=== PATIENT | male | born 1945 | race American Indian/Alaskan Native ===

== ENCOUNTER 2019-04-26 08:48 | Outpatient (CLI) | payer MEDICARE ==
[2019-04-26] MEDS: MIDAZOLAM 2 MG/2 ML INJ ONE ×2 (10:13→10:57)
[2019-04-26] MEDS: fentaNYL 100 MCG/2 ML INJ ONE ×2 (10:13→10:57)
--- NOTE | 2019-04-26 10:30 | Short Stay Summary ---
Short Stay Documentation Date of service: 04/26/19 - History Principal diagnosis: carotid stenosis Past Medical History: dialysis, ESRD, PVD, other (carotid stenosis) Past Surgical History: Other (multiple fistulas/grafts) Social history: no significant social history - Allergies and Medications Current Medications: Allergies iron dextran complex [From Infed] Allergy (Unverified 04/26/19 08:53) CAUSE PT TO HAVE A STROKE - Physical exam General appearance: no acute distress Integumentary: no rash, no growths HEENT: Atraumatic Lungs: Normal air movement Breasts: deferred Heart: Regular rate Gastrointestinal: normal Male Genitourinary: deferred Rectal Exam: deferred Extremities: abnormal Neurological: Normal speech, Normal tone - Brief post op/procedure progress note Date of procedure: 04/26/19 Pre-op diagnosis: carotid stenosis Post-op diagnosis: same Procedure: us and fluoro guided right common femoral vein PICC placement Anesthesia: local Surgeon: BRIANA UREÑA Estimated blood loss: minimal Pathology: none Condition: stable - Disposition Condition at discharge: Good Disposition: DC-01 TO HOME OR SELFCARE Short Stay Discharge Plan Activity: advance as tolerated Weight Bearing Status: Weight Bear as Tolerated Diet: regular Wound: keep clean and dry, per your surgeon's advice Follow up with: SHANTEL GARAY MD [Primary Care Provider] - 7 Days
[2019-04-26] MEDS ORDERED: HEPARIN/NS 5000 UNIT/500ML 500 ML IR ONE (10:39)
[2019-04-26] MEDS ORDERED: HEPARIN 10,000 UNITS/10 ML VIAL ONE (10:39)
[2019-04-26] MEDS: LIDOCAINE 1%/EPINEPHRINE 1:100,000 VIAL (20 ML) INFILTRATI ONE ×2 (10:56→11:11)
--- NOTE | 2019-04-26 11:28 | Operative Report ---
Operative Report Operative Report: Exam: Ultrasound and fluoroscopic guided PICC placement Clinical indication: Carotid stenosis Date: 04/26/2019 Procedure: Following an expiration of the risks, benefits and alternatives; written informed consent was obtained. The patient was brought to the angiographic suite and placed in supine position on the examination table. Initial ultrasound evaluation of his right groin demonstrated a patent right common femoral vein. The patient's right groin was prepped and draped in the usual sterile fashion. 1% lidocaine was used for anesthesia. Under ultrasound guidance, the right common femoral vein was cannulated with a 7 cm 21-gauge needle. A 0.01 a guidewire was advanced centrally. The needle was removed and a micro-sheath placed. Following the administration of a minimal amount of sedatives, the micro-sheath was exchanged over the guidewire for a 5.5 [place] peel-away sheath. A 0.01 a guidewire was then advanced centrally under fluoroscopy. The guidewire was advanced through the heart into the right subclavian vein stent for anchoring and to document intravenous positioning. The PICC was then cut to length and inserted to the peel-away sheath. With a guidewire, the catheter was advanced to the proximal IVC. The guidewire was removed. The peel-away sheath was removed. Both ports flushed and aspirated easily and return nonpulsatile blood. Catheter was securely fastened skin surface using a StatLock device and a sterile dressing applied. The patient tolerated the procedure well. There were no immediate post procedure complications. Conscious sedation was performed under the guidance of radiologic nursing. Continuous cardiopulmonary monitoring was utilized. [place]: Ultrasound and fluoroscopic guided PICC placement via the right common femoral vein.
[2019-04-26 12:16] VITALS: BP 137/48
--- NOTE | 2019-04-26 15:48 | Cat Scan Report ---
HEAD CT ANGIOGRAM 04/26/2019 HISTORY: Bilateral carotid artery stenosis. Omnipaque 350 100 mL FINDINGS: Contrast-enhanced CT angiographic images of the intracranial circulation were obtained. In addition to the axial images, sagittal and coronal reformatted images were obtained. In addition, 3 p je MIP reconstructions were produced. Atherosclerotic vascular calcifications are associated with the distal internal carotid arteries bila terally, and are associated with segmental narrowing of the distal ICAs, more pronounced on the right than on the left. There is evidence of intracranial atherosclerotic irregularity along the course of the middle cerebra l arteries and branches bilaterally, as well as along the course of the posterior cerebral arteries. The vertebrobasilar system is intact. The left distal vertebral artery is relatively hypoplastic on a developmental basis. There is no evidence of aneurysm IMPRESSION: Findings consistent with intracranial atherosclerotic disease. All CT scans at this location are performed using dose reduction to ALARA by means of automated expos ure control. Signer Name: Baljinder Franklin MD Signed: 04/26/2019 3:44 PM Workstation Name: [id number]
--- NOTE | 2019-04-26 15:53 | Cat Scan Report ---
NECK CT ANGIOGRAM 04/26/2019 HISTORY: Carotid stenosis FINDINGS: Contrast-enhanced CT angiographic images of the neck were obtained. In addition to the axia l images, sagittal and coronal reformatted images were obtained. In addition, 3 plane MIP reconstruct ions were produced. At the right bifurcation, there is atherosclerotic calcification, and evidence of soft plaque or thro mbus at the origin of the internal carotid artery, associated with. High-grade stenosis, in the range of 90% or greater. The vessel is not occluded. On the left, there is also some atherosclerotic calcification and thrombus or soft plaque, associated with approximately 50% narrowing of the proximal internal carotid artery. Common carotid arteries are unremarkable. There is no visualization of the left vertebral artery, which may be occluded or hypoplastic on a dev elopmental basis. The right vertebral artery is unremarkable. Visualized portions of the aortic arch are unremarkable. Patient is noted to have a stent in the right brachiocephalic vein. IMPRESSION: High-grade stenosis at the origin of the right internal carotid artery. See above discuss ion for details. NASCET like criteria were used in this evaluation. All CT scans at this location are performed using dose reduction to ALARA by means of automated expos ure control. Signer Name: Baljinder Franklin MD Signed: 04/26/2019 3:49 PM Workstation Name: [id number]
== END 2019-04-26 12:55 | disposition home or self-care (01) ==
LOC: CT 08:48
PROVIDERS: ATTEND Radiology Diagnostic Radiology
DX: I65.23 Occlusion and stenosis of bilateral carotid arteries (principal); N18.6 End stage renal disease; I73.9 Peripheral vascular disease, unspecified; Z99.2 Dependence on renal dialysis; Z79.899 Other long term (current) drug therapy; Z88.8 Allergy status to other drugs, medicaments and biological substances
CPT/HCPCS: 36573; 70496; 70498; 77001; 99156; 99157; C1751; J1644; J2250; J3010; Q9967; 36569

== ENCOUNTER 2019-05-15 07:25 | Inpatient (IN) | payer MEDICARE ==
[~2019-05-15 07:25] MED LIST: BUPIVACAINE/PF (0.5%) 5 MG/1 ML 10 ML VIAL INFILTRATI ONE; ceFAZolin/Water 2 GM/20 ML 2 GM/20 ML SYRINGE IV NR
[2019-05-15 09:01] LABS: Basophils % (Auto) 0.9 % (0.0-1.8); Eosinophils # (Auto) 0.3 K/mm3 (0.0-0.4); Eosinophils % (Auto) 7.1 % (0.0-4.3); Hematocrit 31.3 % (35.5-45.6); Hemoglobin 10.5 gm/dl (11.8-15.2); Lymphocytes # (Auto) 0.9 K/mm3 (1.2-5.4); Lymphocytes % (Auto) 23.2 % (13.4-35.0); Mean Corpuscular HGB Conc 34 % (32-34); Mean Corpuscular Volume 98 fl (84-94); Monocytes # (Auto) 0.4 K/mm3 (0.0-0.8); Monocytes % (Auto) 9.3 % (0.0-7.3); Platelet Count 106 K/mm3 (140-440); Red Blood Count 3.18 M/mm3 (3.65-5.03); Red Cell Distribution Width 15.2 % (13.2-15.2)
--- NOTE | 2019-05-15 09:18 | Anesthesia Consultation ---
Anesthesia Consult and Med Hx Date of service: 05/15/19 - Airway Anesthetic Teeth Evaluation: Partials ROM Head & Neck: Adequate Mental/Hyoid Distance: Adequate Mallampati Class: Class II Intubation Access Assessment: Good - Pulmonary Exam CTA: Yes - Cardiac Exam Cardiac Exam: RRR - Pre-Operative Health Status ASA Pre-Surgery Classification: ASA3 Proposed Anesthetic Plan: General (CHF EF 35-40%, Pacer, HTN cardiac clearance low risk , ESRD on HD , CVA for GA) - Pulmonary Hx Smoking: Yes (Former) - Cardiovascular System Hx Hypertension: Yes Hx Coronary Artery Disease: Yes Hx Valvular Heart Disease: Yes (Needs valve replacement) Hx Peripheral Vascular Disease: Yes - Central Nervous System CVA: Yes (Many years ago, no deficits now) Hx Psychiatric Problems: Yes - Endocrine Hx End Stage Renal Disease: Yes - Hematic Hx Anemia: Yes - Other Systems Hx Cancer: No
[2019-05-15] MEDS ORDERED: HYDROmorphone 1 MG/1 ML INJ IV PRN (09:19)
[2019-05-15] MEDS ORDERED: ONDANSETRON 4 MG/2 ML INJ IV PRN (09:19)
--- NOTE | 2019-05-15 09:19 | Anesthesia Day of Surgery ---
Anesthesia Day of Surgery - Day of Surgery Patient Examined: Yes Patient H&P Reviewed: Yes Patient is NPO: Yes
[2019-05-15 09:36] LABS: Calcium 9.2 mg/dL (8.4-10.2)
[2019-05-15] MEDS ORDERED: SODIUM CHLORIDE 0.9% 1000 ML 1,000 ML IV SCH (09:53)
[2019-05-15] MEDS ORDERED: MIDAZOLAM 2 MG/2 ML INJ IV NR (10:00)
[2019-05-15] MEDS ORDERED: fentaNYL 100 MCG/2 ML INJ ONE (10:06)
[2019-05-15] MEDS ORDERED: LIDOCAINE MPF (2%) 20 MG/1 ML VIAL 5 ML ONE (10:06)
[2019-05-15] MEDS ORDERED: PROPOFOL 200 MG/20 ML VIAL IV ONE (10:06)
[2019-05-15] MEDS ORDERED: PHENYLEPHRINE 10 MG/1 ML INJ SDV ONE ×3 (10:11→13:26)
[2019-05-15] MEDS ORDERED: PAPAVERINE 60 MG/2 ML INJ SDV ONE (10:11)
[2019-05-15] MEDS ORDERED: PROTAMINE SULFATE 50 MG/5 ML INJ ONE (10:11)
[2019-05-15] MEDS ORDERED: PHENYLEPHRINE/NS 1,000 MCG/10 ML SYRINGE (OR USE) IV ONE (10:11)
[2019-05-15] MEDS ORDERED: HEPARIN 10,000 UNITS/10 ML VIAL ONE (10:12)
[2019-05-15] MEDS ORDERED: THROMBIN (RECOMBINANT) 5,000 UNIT VIAL TP ONE ×2 (10:12→13:14)
[2019-05-15] MEDS ORDERED: rifAMPin 600 MG VIAL ONE (10:12)
[2019-05-15] MEDS ORDERED: SODIUM CHLORIDE 0.9% 500 ML 500 ML ONE (10:12)
[2019-05-15] MEDS ORDERED: LIDOCAINE-MPF (1%) 10 MG/1 ML VIAL 5 ML ONE (10:12)
[2019-05-15] MEDS ORDERED: GELATIN SPONGE SIZE 100 TP ONE ×2 (10:12→13:14)
[2019-05-15] MEDS ORDERED: BUPIVACAINE/PF (0.5%) 5 MG/1 ML 30 ML VIAL INFILTRATI ONE (10:12)
[2019-05-15] MEDS ORDERED: SODIUM CHLORIDE 0.9% 100 ML ONE (11:31)
[2019-05-15] MEDS ORDERED: ROCURONIUM 50 MG/5 ML INJ IV ONE (11:49)
[2019-05-15] MEDS ORDERED: SODIUM CHLORIDE 0.9% 500 ML IVPB IV ONE (12:05)
[2019-05-15] MEDS ORDERED: HEPARIN 10,000 UNITS/10 ML VIAL IV ONE (12:05)
[2019-05-15] MEDS ORDERED: rifAMPin 600 MG VIAL IV ONE (12:21)
[2019-05-15] MEDS ORDERED: BUPIVACAINE/PF (0.5%) 5 MG/1 ML 10 ML VIAL INFILTRATI ONE (13:25)
[2019-05-15] MEDS ORDERED: NEOSTIGMINE 10MG/10 ML INJ MDV ONE (13:30)
[2019-05-15] MEDS ORDERED: GLYCOPYRROLATE 0.4 MG/2 ML INJ ONE (13:30)
--- NOTE | 2019-05-15 13:33 | Vascular Lab Report ---
VL CAROTID DUPLEX RIGHT HISTORY: Right carotid stenosis, patient is status post endarterectomy TECHNIQUE: Grayscale ultrasound with color and spectral Doppler interrogation. FINDINGS: A limited targeted carotid ultrasound was performed to evaluate the right carotid system. The visualized CCA and ICA are widely patent with no evidence for disease or stenosis. Peak systolic velocity in the right ICA measures 66 cm/s. End-diastolic velocity measures 20 cm/s. IMPRESSION: Widely patent right carotid system. Patient is status post endarterectomy with peak systolic velocity 66 cm/s the right ICA. Signer Name: Paulino Boone Jr, MD Signed: 05/15/2019 1:29 PM Workstation Name: [id number]
[2019-05-15] MEDS ORDERED: NITROPRUSSIDE 50 MG in DEXTROSE 5% IN WATER 248 ML IV SCH (15:00)
[2019-05-15] MEDS ORDERED: DOPamine/D5W 800 MG/250 ML 800 MG/250 ML BAG IV SCH (15:00)
--- NOTE | 2019-05-15 15:04 | Post Anesthesia Evaluation ---
- Post Anesthesia Evaluation Patient Participated: Yes Airway Patent: Yes Stable Respiratory Function: Yes Nausea/Vomiting: No Temp > 96.8F: Yes Pain Manageable: Yes Adequeate Hydration: Yes Anesthesia Complications: No Block Receding Appropriately: Not Applicable
--- NOTE | 2019-05-15 15:09 | Operative Report ---
Operative Report Operative Report: Date of procedure: 05/15/2019 Pre-operative diagnosis: Right Carotid Artery Stenosis Post-operative diagnosis: Right Carotid Artery Stenosis Procedure(s): 1. Right Carotid Endarterectomy With Patch Angioplasty 2. Intraoperative Completion Duplex Surgeon: Christ Redd MD Paint Roller Covermaker: None Anesthesia: General Endotracheal Anesthesia EBL: 100 mL Findings: Significant internal right carotid artery stenosis. Specimen: Right Carotid Plaque Counts: Correct Complications: None Condition: Stable Indication: The patient is a 73-year-old male with a history of peripheral vascular disease with bilateral lower extremity rest pain who had a carotid duplex demonstrating approximately 90% stenosis of his right internal carotid. He is asymptomatic however he is in need of a right carotid endarterectomy prior to having intervention of his bilateral lower extremity peripheral vascular disease. He was worked up and found to be a suitable candidate for open carotid endarterectomy. He was given the risks, benefits, and alternative procedures and consented to procedure. Description of Procedure: The patient was brought to the operating room and laid in supine position. After general endotracheal anesthesia was achieved the patient was placed in beachchair position with her head elevated and turned slightly to the left. The patient's neck and chest were prepped and draped in normal fashion. An oblique incision was then created along the anterior border of the sternocleidomastoid. The incision was then carried down to the facial vein using sharp dissection. The facial vein was then dissected out circumferentially, suture ligated and divided. The dissection was then carried down to the common carotid using sharp dissection. The common carotid artery was dissected out circumferentially taking care to avoid the vagus nerve which was identified and avoided. The artery was then controlled with a large vessel loop. The dissection was carried up along the external carotid and the superficial thyroid artery was identified dissected out circumferentially and controlled with a 2-0 silk. The external carotid was dissected out and controlled a small vessel loop. I then dissected out the internal carotid artery well above the plaque which was identified by a change in hue of the artery from yellow to blue and palpation of the artery over a right angle. The hypoglossal nerve was identified and avoided. I controlled the internal carotid artery with a small vessel and at this point the patient was systemically heparinized with heparin IV. Once the heparin had circulated for 3 minute I clamped the internal carotid artery followed by the common carotid and then the external Carotid artery. I created an arteriotomy extending from the common carotid into the internal carotid, well above the plaque, using an 11 blade and Ortiz scissors. I then flashed the internal carotid artery to check for adequate backbleeding. The backbleeding from the internal carotid was sluggish therefore the patient will course shunting. I advanced a argyle shunt into the common carotid and then removed the clamp from the internal carotid and advanced the distal end of the shunt into the internal carotid. The shunt was secured in the internal carotid using a Gt clamp. u I then used a Imperial blade to dissect the plaque away from the artery. I used a right angle to continue the dissection of this plane from lateral to medial and then divided the plaque using Ortiz scissors. I then trimmed the plaque proximally using Ortiz and then teased the plaque away from the distal endpoint insuring that there were no areas of dissection or intimal flaps. These plaque forceps to remove all loose debris and then flushed the artery with heparinized saline. I then closed the artery using the Dacron patch and two 6-0 Prolenes in running fashion. Prior to completing the closure I removed the argyle shunt and flushed all arteries to remove all loose debris and then flushed the artery with heparinized saline. I then completed the closure adn flashed the internal carotid,and reclamped and then removed the clamp from the common carotid followed by the external carotid and allowed any loose debris to flush into the external carotid. I then removed the clamp from the internal carotid artery. Hemostasis was achieved with repair sutures with 6-0 Prolene in interrupted fashion and a combination of direct pressure with Quick Clot. Once hemostasis was achieved I performed an intraoperative duplex that demonstrated no evidence of dissection and normalization of internal carotid velocity. I then anesthetized the wound with 0.5% Marcaine and closed in 2 layers using a 3-0 Vicryl in running in the deep dermal layer and a 4-0 Monocryl in running in the subcuticular layer and dressed it with the Dermabond. The patient tolerated the procedure well all sponge needle and instrument counts were correct the patient was taken to the recovery area in stable condition.
[2019-05-15] MEDS: SODIUM CHLORIDE 0.9% 1000 ML 1,000 ML IV SCH (16:13)
[2019-05-15] MEDS: HYDROcodone/ACETAMINOPHEN 5-325 MG TAB PO PRN ×2 (17:48→23:54)
[2019-05-15] MEDS: ceFAZolin/NS 1 GM/50 ML 1 GM/50 ML BAG IV SCH (19:42)
[2019-05-15] MEDS ORDERED: NON-FORMULARY EACH (Ferric Citrate (Nf) 210 MG) PO SCH (20:00)
[2019-05-15] MEDS: DOCUSATE SODIUM 100 MG CAP PO SCH (22:04)
[2019-05-15] MEDS: TICAGRELOR 90 MG TAB PO SCH (22:04)
[2019-05-15] MEDS: MEGESTROL 40 MG TAB PO SCH (22:04)
[2019-05-15] MEDS: carvediloL 6.25 MG TAB PO SCH (22:29)
[2019-05-16] MEDS: SODIUM CHLORIDE 0.9% 1000 ML 1,000 ML IV SCH (02:23)
[2019-05-16] MEDS: ceFAZolin/NS 1 GM/50 ML 1 GM/50 ML BAG IV SCH (02:24)
[2019-05-16] MEDS: HYDROcodone/ACETAMINOPHEN 5-325 MG TAB PO PRN ×2 (06:00→21:51)
[2019-05-16] MEDS: carvediloL 6.25 MG TAB PO SCH ×2 (10:00→22:16)
[2019-05-16] MEDS: LISINOPRIL 5 MG TAB PO SCH (10:00)
[2019-05-16] MEDS ORDERED: NON-FORMULARY EACH (Lisinopril [Zestril Tab] 5 MG) PO SCH (10:00)
--- NOTE | 2019-05-16 10:48 | Progress Note ---
Assessment and Plan I discussed with patient the need to allow labs so that he can undergo dialysis. Additionally, the patient will need placement of a PICC line prior to his CTA of the abdomen and pelvis with runoff to his feet in the frailty of his veins a nd repeated contrast extravasation when CT scans are performed through superficial veins. The PICC team was consulted. The patient is doing well following his carotid endarterectomy. We'll keep the patient in the ICU 1 more night and sent to the floor tomorrow. Subjective Date of service: 05/16/19 Principal diagnosis: right carotid stenosis Interval history: Patient status post right carotid endarterectomy postop day 1. His incision is clean dry and intact with minimal tenderness to palpation. Patient is breathing easily. He does complain of difficulty swallowing large pills likely secondary to dehydration. The patient is moving all extremities symmetrically. He has been refusing laboratory tests as well as IV placement. Objective - Constitutional Vitals: Vital Signs - 12hr 05/15/19 05/15/19 05/16/19 23:00 23:30 00:00 Temperature 100.8 F H Pulse Rate 70 71 68 Pulse Rate [ From Monitor] Respiratory 30 H 29 H 27 H Rate Blood Pressure 106/49 107/48 107/48 O2 Sat by Pulse 100 100 100 Oximetry 05/16/19 05/16/19 05/16/19 00:30 01:00 01:30 Temperature Pulse Rate 70 68 73 Pulse Rate [ From Monitor] Respiratory 24 24 22 Rate Blood Pressure 93/43 89/38 84/37 O2 Sat by Pulse 100 100 Oximetry 05/16/19 05/16/19 05/16/19 02:00 02:30 03:00 Temperature Pulse Rate 73 71 72 Pulse Rate [ From Monitor] Respiratory 24 22 20 Rate Blood Pressure 84/37 89/38 96/42 O2 Sat by Pulse 91 Oximetry 05/16/19 05/16/19 05/16/19 03:30 04:00 04:30 Temperature 99.7 F H Pulse Rate 86 79 86 Pulse Rate [ 87 From Monitor] Respiratory 20 18 17 Rate Blood Pressure 96/46 100/44 96/46 O2 Sat by Pulse 98 100 Oximetry 05/16/19 05/16/19 05/16/19 05:00 05:30 06:00 Temperature Pulse Rate 85 72 87 Pulse Rate [ From Monitor] Respiratory 17 18 18 Rate Blood Pressure 95/47 99/44 113/51 O2 Sat by Pulse 100 100 Oximetry 05/16/19 05/16/19 05/16/19 06:30 07:00 07:30 Temperature Pulse Rate 79 78 77 Pulse Rate [ From Monitor] Respiratory 17 20 17 Rate Blood Pressure 98/48 99/50 104/52 O2 Sat by Pulse Oximetry 05/16/19 05/16/19 05/16/19 08:00 08:07 08:30 Temperature 96.5 F L Pulse Rate 85 86 Pulse Rate [ From Monitor] Respiratory 17 19 Rate Blood Pressure 101/43 108/55 O2 Sat by Pulse 100 100 Oximetry 05/16/19 05/16/19 05/16/19 09:00 09:30 10:00 Temperature Pulse Rate 83 91 H 84 Pulse Rate [ From Monitor] Respiratory 16 17 22 Rate Blood Pressure 106/55 105/55 112/58 O2 Sat by Pulse 100 100 100 Oximetry General appearance: Present: no acute distress - EENT Eyes: EOM intact ENT: hearing intact - Neck Neck: supple, normal ROM - Respiratory Respiratory effort: normal - Breasts Breasts: deferred Extremities: abnormal Extremity abnormal: pulses diminished - Gastrointestinal General gastrointestinal: Present: deferred Rectal Exam: deferred - Genitourinary Male genitourinary: deferred - Psychiatric Psychiatric: appropriate mood/affect, cooperative - Labs CBC & Chem 7: 05/15/19 08:50 05/15/19 08:50 Medications & Allergies - Medications Allergies/Adverse Reactions: Allergies iron dextran complex [From Infed] Allergy (Severe, Verified 05/15/19 10:53) CAUSE PT TO HAVE A STROKE Home Medications: Home Medications Medication Instructions Recorded Confirmed Last Taken Type Apixaban [Eliquis] 5 mg PO DAILY 05/14/19 05/14/19 05/13/19 10:00 History Aspirin [Aspirin BABY CHEW TAB] 81 mg PO DAILY 05/14/19 05/14/19 05/13/19 10:00 History Ferric Citrate (Nf) [Auryxia] 210 mg PO TID 05/14/19 05/14/19 05/14/19 10:00 History HYDROcodone/APAP 5-325 [[place] 1 tab PO Q6H PRN 05/14/19 05/14/19 Unknown History 5-325 mg TAB] Lisinopril [Zestril TAB] 5 mg PO QDAY 05/14/19 05/14/19 05/14/19 10:00 History Megestrol [Megace] 40 mg PO BID 05/14/19 05/14/19 05/14/19 10:00 History Ticagrelor [Brilinta] 90 mg PO BID 05/14/19 05/14/19 05/14/19 10:00 History carvediloL [Coreg] 6.25 mg PO BID 05/14/19 05/14/19 05/14/19 10:00 History Active Medications: Generic Name Dose Route Start Last Admin Trade Name Freq PRN Reason Stop Dose Admin Acetaminophen/Hydrocodone Bitart 1 each 05/15/19 14:02 05/16/19 06:00 [place] 5/325 PO 1 each Q6H PRN Administration Pain, Moderate (4-6) Apixaban 5 mg 05/16/19 10:00 Eliquis PO DAILY [facility] Protocol Aspirin 81 mg 05/16/19 10:00 Baby Aspirin PO DAILY [facility] Carvedilol 6.25 mg 05/15/19 22:00 05/15/19 22:29 Coreg PO Not Given BID [facility] Docusate Sodium 100 mg 05/15/19 22:00 05/15/19 22:04 Colace PO 100 mg BID [facility] Administration Dopamine HCl/Dextrose 800 mg in 250 mls @ 2.211 mls/hr 05/15/19 15:00 05/16/19 10:00 Intropin Drip 800 Mg/D5w 250 Ml IV 0 mcg/kg/min TITR [facility] 0 mls/hr Titration Protocol 2 MCG/KG/MIN Sodium Nitroprusside 50 mg/ 250 mls @ 4.423 mls/hr 05/15/19 15:00 Dextrose IV TITR [facility] Protocol 0.25 MCG/KG/MIN Sodium Chloride 1,000 mls @ 100 mls/hr 05/15/19 14:15 05/16/19 02:23 Nacl 0.9% 1000 Ml IV 100 mls/hr DIRECT [facility] Administration Lisinopril 5 mg 05/16/19 10:00 Zestril PO QDAY [facility] Megestrol Acetate 40 mg 05/15/19 22:00 05/15/19 22:04 Megestrol PO 40 mg BID [facility] Administration Miscellaneous Medication 210 mg 05/15/19 20:00 Ferric Citrate (Nf) PO TID [facility] Ticagrelor 90 mg 05/15/19 22:00 05/15/19 22:04 Brilinta PO 90 mg BID [facility] Administration
[2019-05-16] MEDS: TICAGRELOR 90 MG TAB PO SCH ×2 (10:50→21:52)
[2019-05-16] MEDS: MEGESTROL 40 MG TAB PO SCH ×2 (10:50→21:52)
[2019-05-16] MEDS: APIXABAN 5 MG TAB PO SCH (10:50)
[2019-05-16] MEDS: DOCUSATE SODIUM 100 MG CAP PO SCH ×2 (10:50→21:52)
[2019-05-16] MEDS: ASPIRIN 81 MG TAB CHEW PO SCH (10:51)
--- NOTE | 2019-05-16 11:48 | Consultation ---
History of Present Illness Consult date: 05/16/19 Requesting physician: ISSAC WHITTINGTON Reason for consult: other (Carotid Stenosis s/p CEA; Acute Hypoxemic Resp Failure; PVD; ESRD on Dialysis) History of present illness: PULMONARY/CCM CONSULT NOTE (Full dictation # [id number]) Please see dictated notes for full details Medications and Allergies Allergies Allergy/AdvReac Type Severity Reaction Status Date / Time iron dextran complex Allergy Severe CAUSE PT Verified 05/15/19 10:53 [From Infed] TO HAVE A STROKE Home Medications Medication Instructions Recorded Confirmed Last Taken Type Apixaban [Eliquis] 5 mg PO DAILY 05/14/19 05/14/19 05/13/19 10:00 History Aspirin [Aspirin BABY CHEW TAB] 81 mg PO DAILY 05/14/19 05/14/19 05/13/19 10:00 History Ferric Citrate (Nf) [Auryxia] 210 mg PO TID 05/14/19 05/14/19 05/14/19 10:00 History HYDROcodone/APAP 5-325 [[place] 1 tab PO Q6H PRN 05/14/19 05/14/19 Unknown History 5-325 mg TAB] Lisinopril [Zestril TAB] 5 mg PO QDAY 05/14/19 05/14/19 05/14/19 10:00 History Megestrol [Megace] 40 mg PO BID 05/14/19 05/14/19 05/14/19 10:00 History Ticagrelor [Brilinta] 90 mg PO BID 05/14/19 05/14/19 05/14/19 10:00 History carvediloL [Coreg] 6.25 mg PO BID 05/14/19 05/14/19 05/14/19 10:00 History Active Meds: Active Medications Acetaminophen/Hydrocodone Bitart ([place] 5/325) 1 each PO Q6H PRN PRN Reason: Pain, Moderate (4-6) Last Admin: 05/16/19 06:00 Dose: 1 each Documented by: Apixaban (Eliquis) 5 mg PO DAILY [facility]; Protocol Last Admin: 05/16/19 10:50 Dose: 5 mg Documented by: Aspirin (Baby Aspirin) 81 mg PO DAILY [facility] Last Admin: 05/16/19 10:51 Dose: 81 mg Documented by: Carvedilol (Coreg) 6.25 mg PO BID [facility] Last Admin: 05/16/19 10:00 Dose: Not Given Documented by: Docusate Sodium (Colace) 100 mg PO BID [facility] Last Admin: 05/16/19 10:50 Dose: 100 mg Documented by: Dopamine HCl/Dextrose (Intropin Drip 800 Mg/D5w 250 Ml) 800 mg in 250 mls @ 2.211 mls/hr IV TITR [facility]; Protocol Last Titration: 05/16/19 10:00 Dose: 0 mcg/kg/min, 0 mls/hr Documented by: Sodium Nitroprusside 50 mg/ (Dextrose) 250 mls @ 4.423 mls/hr IV TITR [facility]; Protocol Sodium Chloride (Nacl 0.9% 1000 Ml) 1,000 mls @ 100 mls/hr IV DIRECT [facility] Last Admin: 05/16/19 02:23 Dose: 100 mls/hr Documented by: Lisinopril (Zestril) 5 mg PO QDAY [facility] Last Admin: 05/16/19 10:00 Dose: Not Given Documented by: Megestrol Acetate (Megestrol) 40 mg PO BID [facility] Last Admin: 05/16/19 10:50 Dose: 40 mg Documented by: Miscellaneous Medication (Ferric Citrate (Nf)) 210 mg PO TID [facility] Ticagrelor (Brilinta) 90 mg PO BID [facility] Last Admin: 05/16/19 10:50 Dose: 90 mg Documented by: Physical Examination Vital signs: Vital Signs Temp Pulse Resp BP Pulse Ox 98.4 F 73 18 115/55 99 05/15/19 08:15 05/15/19 08:15 05/15/19 08:15 05/15/19 08:15 05/15/19 08:15 Results - Laboratory Findings CBC and BMP: 05/15/19 08:50 05/15/19 08:50 Abnormal lab findings: Abnormal Labs 05/15/19 05/15/19 08:50 08:50 WBC 4.1 L RBC 3.18 L Hgb 10.5 L Hct 31.3 L MCV 98 H MCH 33 H Plt Count 106 L [place] % (Auto) 9.3 H Eos % (Auto) 7.1 H Lymph # 0.9 L Carbon Dioxide 21 L BUN 46 H Creatinine 10.7 H Glucose 63 L
[2019-05-16] MEDS: MORPHINE 2 MG/1 ML INJ IV PRN ×2 (12:08→19:13)
[2019-05-16] MEDS ORDERED: ALBUTEROL 2.5 MG/3 ML NEBU IH PRN (12:39)
[2019-05-16] MEDS ORDERED: DEXTROSE 50% IN WATER (25GM) 50 ML SYRINGE IV ONE ×2 (12:54→13:08)
--- NOTE | 2019-05-16 13:08 | Consultation ---
History of Present Illness - Reason for Consult chronic renal failure, end stage renal disease - History of Present Illness 73-year-old male -Citizen Of [place], with a history of end-stage renal disease secondary to hypertension, who typically dialyzes and [place], who presented to the emergency room department secondary to endarterectomy secondary to right carotid artery stenosis , done by vascular surgery, who was sent to the ICU post-procedure secondary to hypotension requiring dopamine. Nephrology is being consult at this time secondary to chronic hemodialysis needs. He is to begin a TTS outpatient schedule. He did miss his last session on Monday. When seen the patient this time he has already been weaned off the dopamine infusion, and is hemodynamically otherwise stable, and he is only on 2 L of oxygen and seems to be respiratory ruby stable as well. He will be having CTA tomorrow for further evaluation. He has right upper extremity AV graft. Past History Past Medical History: diabetes, ESRD, hypertension, hyperlipidemia, PVD, stroke, other Past Surgical History: Other (AV graft creation, pacemaker ) Social history: no significant social history Family history: hypertension Medications and Allergies Allergies Allergy/AdvReac Type Severity Reaction Status Date / Time iron dextran complex Allergy Severe CAUSE PT Verified 05/15/19 10:53 [From Infed] TO HAVE A STROKE Home Medications Medication Instructions Recorded Confirmed Last Taken Type Apixaban [Eliquis] 5 mg PO DAILY 05/14/19 05/14/19 05/13/19 10:00 History Aspirin [Aspirin BABY CHEW TAB] 81 mg PO DAILY 05/14/19 05/14/19 05/13/19 10:00 History Ferric Citrate (Nf) [Auryxia] 210 mg PO TID 05/14/19 05/14/19 05/14/19 10:00 History HYDROcodone/APAP 5-325 [[place] 1 tab PO Q6H PRN 05/14/19 05/14/19 Unknown History 5-325 mg TAB] Lisinopril [Zestril TAB] 5 mg PO QDAY 05/14/19 05/14/19 05/14/19 10:00 History Megestrol [Megace] 40 mg PO BID 05/14/19 05/14/19 05/14/19 10:00 History Ticagrelor [Brilinta] 90 mg PO BID 05/14/19 05/14/19 05/14/19 10:00 History carvediloL [Coreg] 6.25 mg PO BID 05/14/19 05/14/19 05/14/19 10:00 History Active Meds: Active Medications Acetaminophen/Hydrocodone Bitart ([place] 5/325) 1 each PO Q6H PRN PRN Reason: Pain, Moderate (4-6) Last Admin: 05/16/19 06:00 Dose: 1 each Documented by: Albuterol (Proventil) 2.5 mg IH Q4HRT PRN PRN Reason: Shortness Of Breath Apixaban (Eliquis) 5 mg PO DAILY [facility]; Protocol Last Admin: 05/16/19 10:50 Dose: 5 mg Documented by: Aspirin (Baby Aspirin) 81 mg PO DAILY [facility] Last Admin: 05/16/19 10:51 Dose: 81 mg Documented by: Carvedilol (Coreg) 6.25 mg PO BID [facility] Last Admin: 05/16/19 10:00 Dose: Not Given Documented by: Docusate Sodium (Colace) 100 mg PO BID [facility] Last Admin: 05/16/19 10:50 Dose: 100 mg Documented by: Famotidine (Pepcid) 20 mg PO DAILY [facility] Dopamine HCl/Dextrose (Intropin Drip 800 Mg/D5w 250 Ml) 800 mg in 250 mls @ 2.211 mls/hr IV TITR [facility]; Protocol Last Titration: 05/16/19 10:00 Dose: 0 mcg/kg/min, 0 mls/hr Documented by: Sodium Nitroprusside 50 mg/ (Dextrose) 250 mls @ 4.423 mls/hr IV TITR [facility]; Protocol Sodium Chloride (Nacl 0.9% 1000 Ml) 1,000 mls @ 100 mls/hr IV DIRECT [facility] Last Admin: 05/16/19 02:23 Dose: 100 mls/hr Documented by: Lisinopril (Zestril) 5 mg PO QDAY [facility] Last Admin: 05/16/19 10:00 Dose: Not Given Documented by: Megestrol Acetate (Megestrol) 40 mg PO BID [facility] Last Admin: 05/16/19 10:50 Dose: 40 mg Documented by: Miscellaneous Medication (Ferric Citrate (Nf)) 210 mg PO TID [facility] Morphine Sulfate (Morphine) 2 mg IV Q4H PRN PRN Reason: Pain, Moderate (4-6) Last Admin: 05/16/19 12:08 Dose: 2 mg Documented by: Ticagrelor (Brilinta) 90 mg PO BID [facility] Last Admin: 05/16/19 10:50 Dose: 90 mg Documented by: Review of Systems Constitutional: fatigue, weakness Exam - Vital Signs Vital signs: Vital Signs Temp Pulse Resp BP Pulse Ox 98.4 F 73 18 115/55 99 05/15/19 08:15 05/15/19 08:15 05/15/19 08:15 05/15/19 08:15 05/15/19 08:15 - General Appearance General appearance: cachectic, chronically ill, frail EENT: ATNC, PERRL Neck: Present: neck supple Respiratory: Clear to Ascultation, Normal Exam Heart: regular, S1S2 Gastrointestinal: Present: normal, normoactive bowel sounds Integumentary: no rash, warm and dry Neurologic: no focal deficit Psychiatric: mood/affect appropriate, cooperative Results - Lab Results 05/15/19 08:50 05/15/19 08:50 Most recent lab results Calcium 9.2 mg/dL (8.4-10.2) 05/15/19 08:50 Assessment and Plan - Patient Problems (1) End stage renal disease Current Visit: Yes Status: Chronic Plan to address problem: We'll plan for hemodialysis tomorrow as he is also getting contrast exposure. Will also put him back on his TTS schedule by dialyzing him again on Monday. Have discussed this in detail with the dialysis staff and alert and orders at this time. (2) Carotid artery stenosis Current Visit: Yes Status: Acute Qualifiers: Laterality: right Qualified Code(s): I65.21 - Occlusion and stenosis of right carotid artery Plan to address problem: Status post right-sided endarterectomy. Further recommendations and management by vascular surgery. (3) Hypertensive chronic kidney disease with stage 5 chronic kidney disease or end stage renal disease Current Visit: Yes Status: Chronic Plan to address problem: Blood pressure is currently on the hypotensive side but improving since intensive care admission. He has now been weaned off of pressors. We'll continue to hold off on antihypertensive medication at this time until his hemodynamics improve further. We'll continue to monitor closely in the ICU. (4) Anemia in CKD (chronic kidney disease) Current Visit: Yes Status: Chronic Qualifiers: Chronic kidney disease stage: on chronic dialysis Qualified Code(s): N18.6 - End stage renal disease; D63.1 - Anemia in chronic kidney disease; Z99.2 - Dependence on renal dialysis Plan to address problem: LEAH therapy with hemodialysis.
[2019-05-16] MEDS ORDERED: ALBUMIN HUMAN 25% (25 GM/100 ML) INJ IV PRN (13:15)
[2019-05-16] MEDS ORDERED: SODIUM CHLORIDE 0.9% 100 ML IV PRN (13:15)
[2019-05-16] MEDS: FAMOTIDINE 20 MG TAB PO SCH (13:50)
[2019-05-16] MEDS ORDERED: D5W/0.45% NACL 1,000 ML IV SCH (14:00)
[2019-05-16 15:10] LABS: Calcium 8.7 mg/dL (8.4-10.2)
[2019-05-16 15:12] LABS: Basophils % (Auto) 0.5 % (0.0-1.8); Eosinophils # (Auto) 0.3 K/mm3 (0.0-0.4); Eosinophils % (Auto) 3.6 % (0.0-4.3); Hematocrit 27.1 % (35.5-45.6); Lymphocytes % (Auto) 13.7 % (13.4-35.0); Mean Corpuscular HGB Conc 33 % (32-34); Mean Corpuscular Volume 100 fl (84-94); Monocytes # (Auto) 0.6 K/mm3 (0.0-0.8); Red Blood Count 2.72 M/mm3 (3.65-5.03); Red Cell Distribution Width 15.8 % (13.2-15.2)
[2019-05-16] MEDS ORDERED: DEXTROSE 50% IN WATER (25GM) 50 ML SYRINGE IV PRN (15:12)
[2019-05-16 15:15] LABS: Platelet Count 89 K/mm3 (140-440)
[2019-05-16 15:22] LABS: Hepatitis B Surface Antigen Non-Reactive (Negative); Hepatitis C Virus Antibody Reactive (NonReactive)
[2019-05-16] MEDS: DEXTROSE 10% IN WATER 1,000 ML IV SCH (15:53)
--- NOTE | 2019-05-16 22:46 | Consultation ---
PULMONARY CRITICAL CARE CONSULT NOTE CONSULTING PHYSICIAN: Dr. Christ Redd. REASON FOR CONSULTATION: 1. Shock, status post right carotid endarterectomy. 2. End-stage renal disease, on dialysis. CHIEF COMPLAINT AND HISTORY OF PRESENT ILLNESS: The patient is a 73-year-old -[place]ag[place] male with past medical history significant amongst other things for a diagnosis of end-stage renal disease, on dialysis; peripheral vascular disease, who apparently was admitted for a right carotid endarterectomy. As far as I can tell, he also has a history of congestive heart failure, ejection fraction 35-40% with an implanted AICD. The procedure seems to have done well. When he did come out, however, he became hypotensive, on dopamine drip and then ICU admission was requested. When I stopped by to see the patient, he was resting in bed. He was complaining of pain in the right side of his neck, but mostly his lower extremities. He admits to some type of neuropathic pain. He states he is unable to swallow at that time and so was asking for some IV analgesics. He denied any nausea, vomiting, or overt aspiration. He described what was more like odynophagia. He denied any chest pains or palpitations. He describes himself as a former but still a 10+ pack-a-year tobacco smoker. Denies history of COPD. He denies being on any bronchodilators at home. He also denies any bleeding. This really is as much of the history of presentation as I have. PAST MEDICAL HISTORY: 1. Peripheral vascular disease. 2. End-stage renal disease, on dialysis. 3. Congestive heart failure, heart failure with reduced ejection fraction of 35-40%. 4. Questionable history of a cerebrovascular accident in the past. 5. Coronary artery disease. 6. Hypertension. 7. Valvular heart disease, reportedly needs a valve replacement. PAST SURGICAL HISTORY: Now status post right carotid endarterectomy. He also has a right upper extremity AV graft for dialysis and implanted cardiac device in the left upper anterior chest wall. MEDICATIONS: He was on at the time I stopped by to see him were reviewed. Pertinent medications included the following: He was on [place] 5/325 mg 1 tablet p.o. q. 6 hours p.r.n. moderate pain. He is also on Eliquis 5 mg p.o. daily, I believe to begin today. Baby aspirin 81 mg p.o. daily, carvedilol 6.25 mg p.o. b.i.d., docusate sodium 100 mg p.o. b.i.d. Dopamine drip was going at 6 mcg per kilogram per minute, Pepcid 20 mg p.o. daily, Zestril 5 mg p.o. daily, Megace 40 mg p.o. b.i.d., a non-formulary medication 210 mg p.o. t.i.d., and Brilinta 90 mg p.o. b.i.d. ALLERGIES: IRON DEXTRAN, complex nature of this allergy is unknown. DIET: Thin gentleman. Denies acute weight loss or gain in the preceding few weeks to months. FAMILY AND SOCIAL HISTORY: Apparently lives in the community. Denies current alcohol, tobacco, or illicit drug use or abuse. He does have a 10+ pack-a-year tobacco smoking history. Family history otherwise significant for hypertension, I believe. REVIEW OF SYSTEMS: No loss of consciousness. No new onset of seizures. No new onset of focal weakness. He denies gross hematochezia or melena. Denies gross hematuria or dysuria. No hematemesis. No hemoptysis. No active chest pain. He has the lower extremity neuropathic pain. He denies periods of unexplained sadness and/or elation as may be consistent with psychiatric type disorders. Complete 13-system review of systems was obtained. Pertinent positives and/or negatives as in body of history above, otherwise noncontributory. I should mention he denies polydipsia, polyuria. He denies heat or cold intolerance. PHYSICAL EXAMINATION: VITAL SIGNS: At presentation, he was afebrile, temperature 98.4 degrees Fahrenheit with a pulse of 73, respiratory rate of 18, blood pressure 115/55, O2 sats were 99%, inspired oxygen concentration at that time was not recorded. Blood pressure dropped as low as MAPs of 54. When I stopped by to see him, O2 sats were 100%; however, that was on 3 liters nasal cannula. GENERAL: He is elderly looking thin -[place]ag[place] male. Normocephalic, atraumatic, lying in bed with mildly increased respiratory effort, mostly from pain at rest. HEAD, EYES, EARS, NOSE AND THROAT: He was anicteric, no conjunctival erythema. Oropharynx was dry. Mallampati #2 oropharynx. No gross jugular venous distention. He has a right carotid endarterectomy. Postop incision without any significant bleeding or redness around it. No thyromegaly. NECK: Grossly, there were no palpable lymph nodes in the supraclavicular or submandibular lymph node chains. LUNGS: Auscultation of both lung stephen unremarkable. Lungs were clear bilaterally with good bilateral air movement. Slightly prolonged expiratory phase. HEART: Heart sounds 1 and 2 are heard. They were regular in rate and rhythm at the time of my evaluation without overt rubs or murmurs. He had an implanted device in the left upper anterior chest wall, nontender and no redness around the device insertion area. ABDOMEN: Flat, soft, bowel sounds are positive, nontender, no palpable hepatosplenomegaly. EXTREMITIES: Without overt digital clubbing, no cyanosis, no pedal edema. Pedal pulses were reduced about 1+ bilaterally. NEUROLOGIC: From the neurologic standpoint, pupils are equal, round, about 4 mm, reactive to light. Extraocular muscle movements were intact. He moves all 4 extremities spontaneously. He was tender to very light touch of the lower extremities, but possibly to do with his neuropathy. SKIN: The skin was of poor turgor, particularly in the lower extremities without overt cellulitis or rash. The skin of the shins was hairless. PSYCHIATRIC: His mood was somewhat anxious as was his affect. LABORATORY DATA: From my review are as follows: Admission white cell count 4100, hemoglobin was 10.5, hematocrit of 31.3, platelet count 106. Serum sodium was 137, potassium was 4.1, chloride 98, bicarbonate 21, BUN 46, creatinine 10.7, glucose was 63. I do not have any microbiology studies for review. A carotid Doppler study was done yesterday. It showed widely patent right carotid system status post carotid endarterectomy. ASSESSMENT: 1. Acute hypoxemic respiratory failure, now on supplemental oxygen. 2. Carotid stenosis, status post right carotid endarterectomy. 3. Peripheral vascular disease. 4. Congestive heart failure, heart failure with reduced ejection fraction of 35-40%. 5. Coronary artery disease. 6. End-stage renal disease, on dialysis Monday, and Monday. 7. Possible history of his prior cerebrovascular accident. 8. Anemia that is microcytic. 9. Hypertension. PLAN: We will continue current management strategies. The dopamine is about to be weaned off. We will titrate it to keep mean arterial pressures greater than or equal to about 65 mmHg. If he does not wean off the dopamine shortly, he will need a central venous access, as this has been running through a peripheral line. No infiltration is noted around the line. Oxygen will be weaned to keep sats greater than or equal to over 90%. A chest x-ray will be ordered to ensure there is no primary pulmonary pathology. He will benefit from evaluation for chronic obstructive lung disease based on the clinical examination and his history. We will continue current anticoagulant therapy with Eliquis and antiplatelet therapy as ordered with aspirin. H and H will be done p.r.n. to ensure there is no bleeding. His chronic congestive heart failure medications have been reintroduced. He will be placed on GI prophylaxis, especially with this patient on full anticoagulation. I will also begin some p.r.n. IV morphine 2 mg IV q. 4 hours p.r.n. severe pain as he is unable to swallow his pills at this point. Swallow evaluation will be deferred to the attending physician as necessary. Dialysis is due today and I will defer to the attending physician for Nephrology consult. Chronic home disease medications will be reinstituted. Cardiology evaluation will be at the behest of the attending physician. His blood pressure is stable at this point. Flu and pneumonia vaccination will be addressed per protocol. Thank you very much for the consult Dr. Redd. We will follow along and make further recommendations as picture progresses/becomes clearer. I should mention continued tobacco abstinence has been counseled. He is critically ill on life-sustaining interventions including vasopressors, at high risk of deterioration including the risk of . At this time, I spent about 35-40 minutes of critical care time without overlap and excluding any procedural time that may be necessary. JOB# [id number] LESLIE/VICENTE ESCOBAR
[2019-05-17] MEDS: DEXTROSE 10% IN WATER 1,000 ML IV SCH (02:51)
[2019-05-17] MEDS: MORPHINE 2 MG/1 ML INJ IV PRN ×3 (02:51→20:32)
--- NOTE | 2019-05-17 08:19 | Progress Note ---
Assessment and Plan Acute hypoxemic respiratory failure Carotid Artery stenosis (S/P Right CEA) Peripheral vascular disease. Congestive heart failure (HFrEF of 35-40%) Coronary artery disease. End-stage renal disease (on dialysis T/T/S) H/O cerebrovascular accident. Anemia (microcytic) Hypertension. - continue supplemental oxygen as needed to keep O2 sat's > 90% - continue bronchodilators with pulmonary hygiene per RT - HD/UF for toxin and volume clearance - PT/OT as tolerated - mobility protocols for pressure ulcer prophylaxis - GI & VTE prophylaxis - Flu & pneumovax addressed per protocol - continue other care per attending / other consultants ... re-evaluate in am & prn Subjective Date of service: 05/17/19 Principal diagnosis: Ac. hypoxemic resp failure; Carotid Artery stenosis; PVD; CHF; CAD; ESRD Interval history: Patient is seen today for: Ac. hypoxemic resp failure; Carotid Artery stenosis (S/P Right CEA); PVD; CHF (HFrEF of 35-40%); CAD; ESRD (on dialysis T/T/S); H/O CVA; Anemia (microcytic); HTN Seen and examined at bedside; 24hour events reviewed; nursing and respiratory care staff consulted; no adverse overnight events reported to me; resting peacefully in bed; feels better; tentatively for dialysis; denies acute chest pains or palpitations Objective Vital Signs - 12hr 05/16/19 05/16/19 05/16/19 21:00 21:51 22:00 Temperature Pulse Rate 71 92 H Pulse Rate [ From Monitor] Respiratory 23 24 29 H Rate Respiratory 31 H Rate [Neck] Blood Pressure 100/56 100/56 O2 Sat by Pulse Oximetry 05/16/19 05/16/19 05/16/19 22:10 22:16 23:00 Temperature Pulse Rate 88 88 76 Pulse Rate [ From Monitor] Respiratory 28 H 24 Rate Respiratory Rate [Neck] Blood Pressure 109/55 100/56 108/58 O2 Sat by Pulse 100 Oximetry 05/17/19 05/17/19 05/17/19 00:00 00:03 01:00 Temperature 98.4 F Pulse Rate 72 70 Pulse Rate [ From Monitor] Respiratory 25 H 22 Rate Respiratory Rate [Neck] Blood Pressure 104/49 105/51 O2 Sat by Pulse 100 100 Oximetry 05/17/19 05/17/19 05/17/19 02:00 02:51 03:00 Temperature Pulse Rate 72 72 Pulse Rate [ From Monitor] Respiratory 21 20 21 Rate Respiratory Rate [Neck] Blood Pressure 105/58 109/53 O2 Sat by Pulse 100 Oximetry 05/17/19 05/17/19 05/17/19 04:00 04:51 05:00 Temperature 98.0 F Pulse Rate 76 71 Pulse Rate [ 78 From Monitor] Respiratory 25 H 22 Rate Respiratory Rate [Neck] Blood Pressure 115/60 107/51 O2 Sat by Pulse 36 L Oximetry 05/17/19 05/17/19 06:00 07:00 Temperature Pulse Rate 71 73 Pulse Rate [ From Monitor] Respiratory 13 22 Rate Respiratory Rate [Neck] Blood Pressure 111/56 111/57 O2 Sat by Pulse Oximetry Constitutional: no acute distress, other (elderly looking thin male, normocephalic with normal respiratory effort at rest) Eyes: non-icteric ENT: oropharynx moist Neck: supple, no lymphadenopathy, other (S/P Right CEA with post op scar) Effort: mildly labored Ascultation: Bilateral: clear, diminished breath sounds Percussion: Bilateral: not dull Cardiovascular: regular rate and rhythm Gastrointestinal: normoactive bowel sounds, soft, non-tender, non-distended Integumentary: normal Extremities: no cyanosis, pulses normal, no ischemia or petechiae Neurologic: normal mental status, non-focal exam (grossly), pupils equal and round, CN II-XII normal Psychiatric: mood appropriate, affect normal CBC and BMP: 05/16/19 14:42 05/16/19 14:42 Abnormal lab findings: Abnormal Labs 05/15/19 05/15/19 05/16/19 08:50 08:50 12:58 WBC 4.1 L RBC 3.18 L Hgb 10.5 L Hct 31.3 L MCV 98 H MCH 33 H RDW Plt Count 106 L [place] % (Auto) 9.3 H Eos % (Auto) 7.1 H Lymph # 0.9 L Seg Neutrophils % Carbon Dioxide 21 L BUN 46 H Creatinine 10.7 H Glucose 63 L POC Glucose < 40 L Hepatitis C Antibody 05/16/19 05/16/19 05/16/19 14:42 14:42 14:42 WBC RBC 2.72 L Hgb 9.0 L Hct 27.1 L MCV 100 H MCH 33 H RDW 15.8 H Plt Count 89 L [place] % (Auto) 8.0 H Eos % (Auto) Lymph # 1.0 L Seg Neutrophils % 74.2 H Carbon Dioxide 17 L BUN 51 H Creatinine 12.0 H Glucose POC Glucose Hepatitis C Antibody Reactive A 05/16/19 14:59 WBC RBC Hgb Hct MCV MCH RDW Plt Count [place] % (Auto) Eos % (Auto) Lymph # Seg Neutrophils % Carbon Dioxide BUN Creatinine Glucose POC Glucose 57 L Hepatitis C Antibody Allied health notes reviewed: nursing
--- NOTE | 2019-05-17 08:28 | Progress Note ---
Assessment and Plan - Patient Problems (1) End stage renal disease Current Visit: Yes Status: Chronic Plan to address problem: We'll plan for hemodialysis today as he is also getting contrast exposure. Will also put him back on his TTS schedule by dialyzing him again on Monday. Have discussed this in detail with the dialysis staff and alert and orders at this time. (2) Carotid artery stenosis Current Visit: Yes Status: Acute Qualifiers: Laterality: right Qualified Code(s): I65.21 - Occlusion and stenosis of right carotid artery Plan to address problem: Status post right-sided endarterectomy. Further recommendations and management by vascular surgery. (3) Hypertensive chronic kidney disease with stage 5 chronic kidney disease or end stage renal disease Current Visit: Yes Status: Chronic Plan to address problem: Blood pressure is currently on the hypotensive side but improving since in [facility]. He has now been weaned off of pressors. We'll continue to hold off on antihypertensive medication at this time until his hemodynamics improve further. We'll continue to monitor closely in the ICU. (4) Anemia in CKD (chronic kidney disease) Current Visit: Yes Status: Chronic Qualifiers: Chronic kidney disease stage: on chronic dialysis Qualified Code(s): N18.6 - End stage renal disease; D63.1 - Anemia in chronic kidney disease; Z99.2 - Dependence on renal dialysis Plan to address problem: LEAH therapy with hemodialysis. Subjective Date of service: 05/17/19 Principal diagnosis: Ac. hypoxemic resp failure; Carotid Artery stenosis; PVD; CHF; CAD; ESRD Interval history: No acute issues overnight. Continues on D10 at 75 mL an hour. Plan for hemodialysis today. Objective - Vital Signs Vital signs: Vital Signs - 12hr 05/16/19 05/16/19 05/16/19 21:00 21:51 22:00 Temperature Pulse Rate 71 92 H Pulse Rate [ From Monitor] Respiratory 23 24 29 H Rate Respiratory 31 H Rate [Neck] Blood Pressure 100/56 100/56 O2 Sat by Pulse Oximetry 05/16/19 05/16/19 05/16/19 22:10 22:16 23:00 Temperature Pulse Rate 88 88 76 Pulse Rate [ From Monitor] Respiratory 28 H 24 Rate Respiratory Rate [Neck] Blood Pressure 109/55 100/56 108/58 O2 Sat by Pulse 100 Oximetry 05/17/19 05/17/19 05/17/19 00:00 00:03 01:00 Temperature 98.4 F Pulse Rate 72 70 Pulse Rate [ From Monitor] Respiratory 25 H 22 Rate Respiratory Rate [Neck] Blood Pressure 104/49 105/51 O2 Sat by Pulse 100 100 Oximetry 05/17/19 05/17/19 05/17/19 02:00 02:51 03:00 Temperature Pulse Rate 72 72 Pulse Rate [ From Monitor] Respiratory 21 20 21 Rate Respiratory Rate [Neck] Blood Pressure 105/58 109/53 O2 Sat by Pulse 100 Oximetry 05/17/19 05/17/19 05/17/19 04:00 04:51 05:00 Temperature 98.0 F Pulse Rate 76 71 Pulse Rate [ 78 From Monitor] Respiratory 25 H 22 Rate Respiratory Rate [Neck] Blood Pressure 115/60 107/51 O2 Sat by Pulse 36 L Oximetry 05/17/19 05/17/19 06:00 07:00 Temperature Pulse Rate 71 73 Pulse Rate [ From Monitor] Respiratory 13 22 Rate Respiratory Rate [Neck] Blood Pressure 111/56 111/57 O2 Sat by Pulse Oximetry - General Appearance General appearance: appears stated age, chronically ill, frail EENT: ATNC, PERRL Neck: no JVD, no thyromegaly Respiratory: Present: Clear to Ascultation Cardiology: regular, S1S2 Gastrointestinal: normal, normoactive bowel sounds Integumentary: warm and dry Neurologic: no focal deficit Musculoskeletal: deferred Psychiatric: cooperative - Lab 05/16/19 14:42 05/16/19 14:42 Most recent lab results Calcium 8.7 mg/dL (8.4-10.2) 05/16/19 14:42 - Allied health notes Allied health notes reviewed: nursing Medications & Allergies - Medications Allergies/Adverse Reactions: Allergies iron dextran complex [From Infed] Allergy (Severe, Verified 05/15/19 10:53) CAUSE PT TO HAVE A STROKE Home Medications: Home Medications Medication Instructions Recorded Confirmed Last Taken Type Apixaban [Eliquis] 5 mg PO DAILY 05/14/19 05/14/19 05/13/19 10:00 History Aspirin [Aspirin BABY CHEW TAB] 81 mg PO DAILY 05/14/19 05/14/19 05/13/19 10:00 History Ferric Citrate (Nf) [Auryxia] 210 mg PO TID 05/14/19 05/14/19 05/14/19 10:00 History HYDROcodone/APAP 5-325 [[place] 1 tab PO Q6H PRN 05/14/19 05/14/19 Unknown History 5-325 mg TAB] Lisinopril [Zestril TAB] 5 mg PO QDAY 05/14/19 05/14/19 05/14/19 10:00 History Megestrol [Megace] 40 mg PO BID 05/14/19 05/14/19 05/14/19 10:00 History Ticagrelor [Brilinta] 90 mg PO BID 05/14/19 05/14/19 05/14/19 10:00 History carvediloL [Coreg] 6.25 mg PO BID 05/14/19 05/14/19 05/14/19 10:00 History Active Medications: Generic Name Dose Route Start Last Admin Trade Name Freq PRN Reason Stop Dose Admin Acetaminophen/Hydrocodone Bitart 1 each 05/15/19 14:02 05/16/19 21:51 [place] 5/325 PO 1 each Q6H PRN Administration Pain, Moderate (4-6) Albumin Human 25 gm 05/16/19 13:15 Alburx 25% (Albumin) IV EBEN PRN Hypotension Albuterol 2.5 mg 05/16/19 12:39 Proventil IH Q4HRT PRN Shortness Of Breath Apixaban 5 mg 05/16/19 10:00 05/16/19 10:50 Eliquis PO 5 mg DAILY [facility] Administration Protocol Aspirin 81 mg 05/16/19 10:00 05/16/19 10:51 Baby Aspirin PO 81 mg DAILY [facility] Administration Carvedilol 6.25 mg 05/15/19 22:00 05/16/19 22:16 Coreg PO Not Given BID [facility] Dextrose 50 ml 05/16/19 15:12 05/16/19 15:29 D50w (25gm) Syringe IV 50 ml Q30MIN PRN Administration Hypoglycemia Protocol Docusate Sodium 100 mg 05/15/19 22:00 05/16/19 21:52 Colace PO 100 mg BID [facility] Administration Famotidine 20 mg 05/16/19 13:00 05/16/19 13:50 Pepcid PO 20 mg DAILY [facility] Administration Dopamine HCl/Dextrose 800 mg in 250 mls @ 2.211 mls/hr 05/15/19 15:00 05/23 10:00 Intropin Drip 800 Mg/D5w 250 Ml IV 0 mcg/kg/min TITR [facility] 0 mls/hr Titration Protocol 2 MCG/KG/MIN Sodium Nitroprusside 50 mg/ 250 mls @ 4.423 mls/hr 05/15/19 15:00 Dextrose IV TITR [facility] Protocol 0.25 MCG/KG/MIN Sodium Chloride 100 mls @ 999 mls/hr 05/16/19 13:15 Nacl 0.9% IV EBEN PRN Hypotension Dextrose 1,000 mls @ 75 mls/hr 05/16/19 16:00 05/17/19 02:51 D10w IV 75 mls/hr DIRECT [facility] Administration Lisinopril 5 mg 05/16/19 10:00 05/16/19 10:00 Zestril PO Not Given QDAY [facility] Megestrol Acetate 40 mg 05/15/19 22:00 05/16/19 21:52 Megestrol PO 40 mg BID [facility] Administration Miscellaneous Medication 210 mg 05/15/19 20:00 Ferric Citrate (Nf) PO TID [facility] Morphine Sulfate 2 mg 05/16/19 11:49 05/17/19 02:51 Morphine IV 2 mg Q4H PRN Administration Pain, Moderate (4-6) Ticagrelor 90 mg 05/15/19 22:00 05/16/19 21:52 Brilinta PO 90 mg BID [facility] Administration
[2019-05-17] MEDS: ASPIRIN 81 MG TAB CHEW PO SCH (09:31)
[2019-05-17] MEDS: DOCUSATE SODIUM 100 MG CAP PO SCH (09:31)
[2019-05-17] MEDS: TICAGRELOR 90 MG TAB PO SCH (09:31)
[2019-05-17] MEDS: carvediloL 6.25 MG TAB PO SCH (09:31)
[2019-05-17] MEDS: APIXABAN 5 MG TAB PO SCH (09:33)
[2019-05-17] MEDS: FAMOTIDINE 20 MG TAB PO SCH (09:33)
[2019-05-17] MEDS: MEGESTROL 40 MG TAB PO SCH (09:33)
[2019-05-17] MEDS: LISINOPRIL 5 MG TAB PO SCH (09:33)
--- NOTE | 2019-05-17 10:02 | Progress Note ---
Subjective Date of service: 05/17/19 Principal diagnosis: Ac. hypoxemic resp failure; Carotid Artery stenosis; PVD; CHF; CAD; ESRD Interval history: s/p Right CEA patient doing well neuro remains intact awaiting CTA to be completed Objective - Constitutional Vitals: Vital Signs - 12hr 05/16/19 05/16/19 05/16/19 22:00 22:10 22:16 Temperature Pulse Rate 92 H 88 88 Pulse Rate [ From Monitor] Respiratory 29 H 28 H Rate Respiratory 31 H Rate [Neck] Blood Pressure 100/56 109/55 100/56 O2 Sat by Pulse Oximetry 05/16/19 05/17/19 05/17/19 23:00 00:00 00:03 Temperature 98.4 F Pulse Rate 76 72 Pulse Rate [ From Monitor] Respiratory 24 25 H Rate Respiratory Rate [Neck] Blood Pressure 108/58 104/49 O2 Sat by Pulse 100 100 Oximetry 05/17/19 05/17/19 05/17/19 01:00 02:00 02:51 Temperature Pulse Rate 70 72 Pulse Rate [ From Monitor] Respiratory 22 21 20 Rate Respiratory Rate [Neck] Blood Pressure 105/51 105/58 O2 Sat by Pulse 100 100 Oximetry 05/17/19 05/17/19 05/17/19 03:00 04:00 04:51 Temperature 98.0 F Pulse Rate 72 76 Pulse Rate [ 78 From Monitor] Respiratory 21 25 H Rate Respiratory Rate [Neck] Blood Pressure 109/53 115/60 O2 Sat by Pulse 36 L Oximetry 05/17/19 05/17/19 05/17/19 05:00 06:00 07:00 Temperature Pulse Rate 71 71 73 Pulse Rate [ From Monitor] Respiratory 22 13 22 Rate Respiratory Rate [Neck] Blood Pressure 107/51 111/56 111/57 O2 Sat by Pulse Oximetry 05/17/19 05/17/19 05/17/19 08:00 09:23 09:31 Temperature 98.7 F Pulse Rate 74 Pulse Rate [ From Monitor] Respiratory Rate Respiratory Rate [Neck] Blood Pressure 115/55 O2 Sat by Pulse 97 Oximetry 05/17/19 09:33 Temperature Pulse Rate 74 Pulse Rate [ From Monitor] Respiratory Rate Respiratory Rate [Neck] Blood Pressure 115/55 O2 Sat by Pulse Oximetry - Labs CBC & Chem 7: 05/16/19 14:42 05/16/19 14:42 Labs: Abnormal lab results 05/16/19 05/16/19 05/16/19 Range/Units 12:58 14:42 14:42 RBC 2.72 L (3.65-5.03) M/mm3 Hgb 9.0 L (11.8-15.2) gm/dl Hct 27.1 L (35.5-45.6) % MCV 100 H (84-94) fl MCH 33 H (28-32) pg RDW 15.8 H (13.2-15.2) % Plt Count 89 L (140-440) K/mm3 [place] % (Auto) 8.0 H (0.0-7.3) % Lymph # 1.0 L (1.2-5.4) K/mm3 Seg Neutrophils % 74.2 H (40.0-70.0) % Carbon Dioxide 17 L (22-30) mmol/L BUN 51 H (9-20) mg/dL Creatinine 12.0 H (0.8-1.5) mg/dL POC Glucose < 40 L (70-105) Hepatitis C Antibody (NonReactive) 05/16/19 05/16/19 Range/Units 14:42 14:59 RBC (3.65-5.03) M/mm3 Hgb (11.8-15.2) gm/dl Hct (35.5-45.6) % MCV (84-94) fl MCH (28-32) pg RDW (13.2-15.2) % Plt Count (140-440) K/mm3 [place] % (Auto) (0.0-7.3) % Lymph # (1.2-5.4) K/mm3 Seg Neutrophils % (40.0-70.0) % Carbon Dioxide (22-30) mmol/L BUN (9-20) mg/dL Creatinine (0.8-1.5) mg/dL POC Glucose 57 L (70-105) Hepatitis C Antibody Reactive A (NonReactive) Medications & Allergies - Medications Allergies/Adverse Reactions: Allergies iron dextran complex [From Infed] Allergy (Severe, Verified 05/15/19 10:53) CAUSE PT TO HAVE A STROKE Home Medications: Home Medications Medication Instructions Recorded Confirmed Last Taken Type Apixaban [Eliquis] 5 mg PO DAILY 05/14/19 05/14/19 05/13/19 10:00 History Aspirin [Aspirin BABY CHEW TAB] 81 mg PO DAILY 05/14/19 05/14/19 05/13/19 10:00 History Ferric Citrate (Nf) [Auryxia] 210 mg PO TID 05/14/19 05/14/19 05/14/19 10:00 History HYDROcodone/APAP 5-325 [[place] 1 tab PO Q6H PRN 05/14/19 05/14/19 Unknown History 5-325 mg TAB] Lisinopril [Zestril TAB] 5 mg PO QDAY 05/14/19 05/14/19 05/14/19 10:00 History Megestrol [Megace] 40 mg PO BID 05/14/19 05/14/19 05/14/19 10:00 History Ticagrelor [Brilinta] 90 mg PO BID 05/14/19 05/14/19 05/14/19 10:00 History carvediloL [Coreg] 6.25 mg PO BID 05/14/19 05/14/19 05/14/19 10:00 History Active Medications: Generic Name Dose Route Start Last Admin Trade Name Freq PRN Reason Stop Dose Admin Acetaminophen/Hydrocodone Bitart 1 each 05/15/19 14:02 05/16/19 21:51 [place] 5/325 PO 1 each Q6H PRN Administration Pain, Moderate (4-6) Albumin Human 25 gm 05/16/19 13:15 Alburx 25% (Albumin) IV EBEN PRN Hypotension Albuterol 2.5 mg 05/16/19 12:39 Proventil IH Q4HRT PRN Shortness Of Breath Apixaban 5 mg 05/16/19 10:00 05/17/19 09:33 Eliquis PO Not Given DAILY [facility] Protocol Aspirin 81 mg 05/16/19 10:00 05/17/19 09:31 Baby Aspirin PO Not Given DAILY [facility] Carvedilol 6.25 mg 05/15/19 22:00 05/17/19 09:31 Coreg PO Not Given BID [facility] Dextrose 50 ml 05/16/19 15:12 05/16/19 15:29 D50w (25gm) Syringe IV 50 ml Q30MIN PRN Administration Hypoglycemia Protocol Docusate Sodium 100 mg 05/15/19 22:00 05/17/19 09:31 Colace PO Not Given BID [facility] Famotidine 20 mg 05/16/19 13:00 05/17/19 09:33 Pepcid PO Not Given DAILY [facility] Dopamine HCl/Dextrose 800 mg in 250 mls @ 2.211 mls/hr 05/15/19 15:00 05/16/19 10:00 Intropin Drip 800 Mg/D5w 250 Ml IV 0 mcg/kg/min TITR [facility] 0 mls/hr Titration Protocol 2 MCG/KG/MIN Sodium Nitroprusside 50 mg/ 250 mls @ 4.423 mls/hr 05/15/19 15:00 Dextrose IV TITR [facility] Protocol 0.25 MCG/KG/MIN Sodium Chloride 100 mls @ 999 mls/hr 05/16/19 13:15 Nacl 0.9% IV EBEN PRN Hypotension Dextrose 1,000 mls @ 75 mls/hr 05/16/19 16:00 05/17/19 02:51 D10w IV 75 mls/hr DIRECT [facility] Administration Lisinopril 5 mg 05/16/19 10:00 05/17/19 09:33 Zestril PO Not Given QDAY [facility] Megestrol Acetate 40 mg 05/15/19 22:00 05/17/19 09:33 Megestrol PO Not Given BID [facility] Miscellaneous Medication 210 mg 05/15/19 20:00 Ferric Citrate (Nf) PO TID [facility] Morphine Sulfate 2 mg 05/16/19 11:49 05/17/19 09:30 Morphine IV 2 mg Q4H PRN Administration Pain, Moderate (4-6) Ticagrelor 90 mg 05/15/19 22:00 05/17/19 09:31 Brilinta PO Not Given BID [facility]
[2019-05-17] MEDS ORDERED: SODIUM CHLORIDE IRRI 500 ML 0 ML IR ONE (10:52)
[2019-05-17] MEDS ORDERED: LIDOCAINE 1%/EPINEPHRINE 1:100,000 VIAL (20 ML) INFILTRATI ONE (10:52)
[2019-05-17] MEDS ORDERED: HEPARIN/NS 5000 UNIT/500ML 500 ML IR ONE (10:52)
[2019-05-17] MEDS ORDERED: SODIUM CHLORIDE 0.9% 250ML 250 ML ONE (10:52)
[2019-05-17] MEDS ORDERED: MIDAZOLAM 2 MG/2 ML INJ ONE (11:49)
[2019-05-17] MEDS ORDERED: fentaNYL 100 MCG/2 ML INJ ONE (11:49)
--- NOTE | 2019-05-17 14:46 | Operative Report ---
Operative Report Operative Report: Date of Procedure: 05/17/2019 Pre-operative Diagnosis: Limited IV Access Post-operative Diagnosis: Same Procedure(s): 1. Ultrasound-Guided Access Left Basilic Vein 2. Diagnostic Left Upper Extremity Venogram With Central Venogram 3. PICC Line Placement Left Basilic Vein 4. Radiologic Supervision and Interpretation Surgeon: Christ Redd M.D. Auto Wash Buffer: None Anesthesia: Local/Monitored Moderate Sedation EBL: Minimal Counts: Correct Complications: None Condition: Stable Findings: Successful placement of PICC line with distal tip in the mid superior vena cava. Specimen: None Indication: The patient is a 73-year-old male with a history of carotid artery stenosis, end-stage renal disease, and peripheral vascular disease who is in need of a CTA of his abdomen and pelvis with bilateral lower extremity runoff. He has had arteriovenous grafts and bilateral upper extremities and has limited IV access with the need for contrast for his CTA. He requires PICC line placement for administration of his IV contrast. He was given the risk, benefits, and alternative procedures and consented to the procedure. Description of Procedure: The patient was brought to the [facility] and laid in supine position. After timeout was performed his left arm was prepped and draped in normal sterile fashion. Ultrasound was used to scan the arm and a patent basilic vein was identified above the antecubital crease. Lidocaine was used to anesthetize the skin and overlying soft tissue and a small stab incision was made with an 11 blade. Micropuncture technique was used to access the basilic vein using ultrasound guidance and the micropuncture wire was advanced. The needle was removed and the micropuncture sheath was advanced by Seldinger technique. The inner dilator and wire were removed and the 0.018 wire from the PICC line kit was advanced. The wire coiled in the mid arm and despite multiple attempts would not advance past the mid arm so I performed a venogram that revealed occlusion of the basilic vein in the mid arm however there was a collateral branch filling the brachial vein and the axillary vein was patent into the central venous system. I removed the micropuncture sheath and placed a 4 [place]. I advanced a 4 [place] vertebral catheter into the basilic vein and can nulated the collateral branch and advanced the 0.018 wire and vertebral catheter into the central venous system. I advanced the wire into the inferior vena cava and the remove the vertebral catheter as well as a 4 [place] sheath. I advanced the peel-away sheath over the 0.018 wire and then advanced the PICC line over the wire and through the peel-away sheath and into the superior vena cava. I wa s unable to pass the catheter past the mid superior vena cava secondary to the patient's AICD Leads. I removed the wire and then pulled with a safe sheath. Both ports easily aspirated and flushed. The catheter was then secured to the patient's skin using a Stat-Lock. It was then dressed with a sterile dressing. The patient tolerated the procedure well and was transported back to his room in stable condition.
--- NOTE | 2019-05-17 16:30 | Cat Scan Report ---
CTA ABDOMEN, PELVIS AND LOWER EXTREMITIES HISTORY: Bilateral peripheral vascular disease with rest pain COMPARISON: None. TECHNIQUE: Noncontrast CT abdomen obtained. Routine postcontrast CT angiography of the abdomen, pelv is and lower extremities performed. Multiplanar/MIP/3D reformats were post-processed on an [employer] free-standing workstation. All CT scans at this location are performed using CT dose reduction for ALARA by means of automated exposure control. CONTRAST: 100 ml of Omnipaque 350 FINDINGS: CTA ABDOMEN: Abdominal Aorta: Severe diffuse calcific plaques but no stenosis. No aneurysm or dissection. Celiac Artery: No hemodynamic stenosis. Superior Mesenteric Artery: No hemodynamic stenosis. Renal Arteries: Right: The right renal artery is atretic with multifocal stenosis. The right kidney is atrophic as well. A suspicious 2.1 cm solid-appearing lesion is identified at the superior pole of the right kidn ey. Left: Absent. Left nephrectomy. Inferior Mesenteric Artery: Patent. CTA PELVIS: RIGHT: Common Iliac Artery: Moderate calcific plaques. No stenosis. Internal Iliac Artery: Moderate calcific plaques. No stenosis. External Iliac Artery: Moderate calcific plaques. No stenosis. LEFT: Common Iliac Artery: Moderate calcific plaques. No stenosis Internal Iliac Artery: Occluded. External Iliac Artery: Moderate calcific plaques. No stenosis. CTA LOWER EXTREMITIES: RIGHT LOWER EXTREMITY: Common Femoral Artery: Mild calcific plaques. No stenosis Superficial Femoral Artery: Diffuse disease with multifocal stenosis measuring up to 90%. Popliteal Artery: Occluded distally Anterior Tibial Artery: Diffuse disease with multifocal stenosis. Tibioperoneal Trunk: Solis disease with multifocal stenosis. Posterior Tibial Artery: Diffuse disease with multifocal stenosis. Peroneal Artery: Diffuse disease with multifocal stenosis. LEFT LOWER EXTREMITY: Common Femoral Artery: Moderate calcific plaques. 50% stenosis. Superficial Femoral Artery: Diffuse disease with multifocal stenosis measuring up to 90%. Popliteal Artery: Diffuse disease with multifocal stenosis measuring up to 70-80%. Anterior Tibial Artery: Diffuse disease with multifocal stenosis. Tibioperoneal Trunk: Fused disease and multifocal stenosis. Posterior Tibial Artery: Diffuse disease with multifocal stenosis. Peroneal Artery: Diffuse disease with multifocal stenosis. Ankle runoff: Three vessel. IMPRESSION: Severe diffuse atherosclerotic disease and peripheral vascular disease as outlined above. Suspicious 2.1 cm solid lesion at the superior pole of the atrophic right kidney. A neoplastic lesion cannot be excluded. Consider correlation with ultrasound or MRI. Signer Name: Paulino Boone Jr, MD Signed: 05/17/2019 4:26 PM Workstation Name: [id number]
[2019-05-17] MEDS ORDERED: SODIUM CHLORIDE*PRIMING MACHINE ONLY FOR DIALYSIS MC ONE (17:00)
[2019-05-18] MEDS: DEXTROSE 10% IN WATER 1,000 ML IV SCH (06:29)
--- NOTE | 2019-05-18 10:52 | Progress Note ---
Assessment and Plan Acute hypoxemic respiratory failure Carotid Artery stenosis (S/P Right CEA) Peripheral vascular disease. Congestive heart failure (HFrEF of 35-40%) Coronary artery disease. End-stage renal disease (on dialysis T/T/S) H/O cerebrovascular accident. Anemia (microcytic) Hypertension. Subjective Date of service: 05/18/19 Principal diagnosis: Ac. hypoxemic resp failure; Carotid Artery stenosis; PVD; CHF; CAD; ESRD Interval history: Patient is seen today for: Ac. hypoxemic resp failure; Carotid Artery stenosis (S/P Right CEA); PVD; CHF (HFrEF of 35-40%); CAD; ESRD (on dialysis T/T/S); H/O CVA; Anemia (microcytic); HTN Seen and examined at bedside; 24hour events reviewed; nursing and respiratory care staff consulted; no adverse overnight events reported to me; Objective Vital Signs - 12hr 05/17/19 05/18/19 05/18/19 23:00 00:00 00:23 Temperature 97.5 F L Pulse Rate 83 80 Pulse Rate [ 81 From Monitor] Respiratory 21 20 Rate Blood Pressure 112/43 103/49 O2 Sat by Pulse 97 Oximetry 05/18/19 05/18/19 05/18/19 01:00 02:00 03:00 Temperature Pulse Rate 81 81 Pulse Rate [ From Monitor] Respiratory 14 12 Rate Blood Pressure 105/46 97/38 100/44 O2 Sat by Pulse Oximetry 05/18/19 05/18/19 05/18/19 04:00 04:26 04:36 Temperature 97.5 F L 97.5 F L Pulse Rate 79 Pulse Rate [ 82 From Monitor] Respiratory 13 Rate Blood Pressure 107/47 O2 Sat by Pulse 97 Oximetry 05/18/19 07:52 Temperature 98.5 F Pulse Rate Pulse Rate [ From Monitor] Respiratory Rate Blood Pressure O2 Sat by Pulse Oximetry CBC and BMP: 05/16/19 14:42 05/16/19 14:42 Abnormal lab findings: Abnormal Labs 05/15/19 05/15/19 05/16/19 08:50 08:50 12:58 WBC 4.1 L RBC 3.18 L Hgb 10.5 L Hct 31.3 L MCV 98 H MCH 33 H RDW Plt Count 106 L [place] % (Auto) 9.3 H Eos % (Auto) 7.1 H Lymph # 0.9 L Seg Neutrophils % Carbon Dioxide 21 L BUN 46 H Creatinine 10.7 H Glucose 63 L POC Glucose < 40 L Hepatitis C Antibody 05/16/19 05/16/19 05/16/19 14:42 14:42 14:42 WBC RBC 2.72 L Hgb 9.0 L Hct 27.1 L MCV 100 H MCH 33 H RDW 15.8 H Plt Count 89 L [place] % (Auto) 8.0 H Eos % (Auto) Lymph # 1.0 L Seg Neutrophils % 74.2 H Carbon Dioxide 17 L BUN 51 H Creatinine 12.0 H Glucose POC Glucose Hepatitis C Antibody Reactive A 05/16/19 05/16/19 05/17/19 14:59 18:32 12:03 WBC RBC Hgb Hct MCV MCH RDW Plt Count [place] % (Auto) Eos % (Auto) Lymph # Seg Neutrophils % Carbon Dioxide BUN Creatinine Glucose POC Glucose 57 L 114 H 129 H Hepatitis C Antibody Allied health notes reviewed: nursing
[2019-05-18] MEDS: LISINOPRIL 5 MG TAB PO SCH (11:59)
[2019-05-18] MEDS: FAMOTIDINE 20 MG TAB PO SCH (12:03)
[2019-05-18] MEDS: carvediloL 6.25 MG TAB PO SCH (12:04)
[2019-05-18] MEDS: APIXABAN 5 MG TAB PO SCH (12:05)
[2019-05-18] MEDS: ASPIRIN 81 MG TAB CHEW PO SCH (12:05)
[2019-05-18] MEDS: DOCUSATE SODIUM 100 MG CAP PO SCH (12:05)
[2019-05-18] MEDS: TICAGRELOR 90 MG TAB PO SCH (12:06)
[2019-05-18] MEDS: MEGESTROL 40 MG TAB PO SCH (12:06)
[2019-05-18] MEDS: HYDROcodone/ACETAMINOPHEN 5-325 MG TAB PO PRN (12:14)
--- NOTE | 2019-05-18 12:15 | Progress Note ---
Assessment and Plan - Patient Problems (1) End stage renal disease Current Visit: Yes Status: Chronic Plan to address problem: We'll plan for hemodialysis today to place him put him back on his TTS schedule (2) Carotid artery stenosis Current Visit: Yes Status: Acute Qualifiers: Laterality: right Qualified Code(s): I65.21 - Occlusion and stenosis of right carotid artery Plan to address problem: Status post right-sided endarterectomy. Further recommendations and management by vascular surgery. (3) Hypertensive chronic kidney disease with stage 5 chronic kidney disease or end stage renal disease Current Visit: Yes Status: Chronic Plan to address problem: Blood pressure is normotensive. He has now been weaned off of pressors. We'll continue to hold off on antihypertensive medication at this time. We'll continue to monitor closely in the ICU. (4) Anemia in CKD (chronic kidney disease) Current Visit: Yes Status: Chronic Qualifiers: Chronic kidney disease stage: on chronic dialysis Qualified Code(s): N18.6 - End stage renal disease; D63.1 - Anemia in chronic kidney disease; Z99.2 - Dependence on renal dialysis Plan to address problem: LEAH therapy with hemodialysis. Subjective Date of service: 05/18/19 Principal diagnosis: Ac. hypoxemic resp failure; Carotid Artery stenosis; PVD; CHF; CAD; ESRD Interval history: Patient received short session of HD yesterday, with plan for complete session today and placement back on TTS inpatient HD schedule. Objective - Vital Signs Vital signs: Vital Signs - 12hr 05/18/19 05/18/19 05/18/19 00:23 01:00 02:00 Temperature 97.5 F L Pulse Rate 81 Pulse Rate [ From Monitor] Respiratory 14 Rate Blood Pressure 105/46 97/38 O2 Sat by Pulse Oximetry 05/18/19 05/18/19 05/18/19 03:00 04:00 04:26 Temperature 97.5 F L Pulse Rate 81 79 Pulse Rate [ 82 From Monitor] Respiratory 12 13 Rate Blood Pressure 100/44 107/47 O2 Sat by Pulse 97 Oximetry 05/18/19 05/18/19 04:36 07:52 Temperature 97.5 F L 98.5 F Pulse Rate Pulse Rate [ From Monitor] Respiratory Rate Blood Pressure O2 Sat by Pulse Oximetry - General Appearance General appearance: chronically ill, fatigue, frail EENT: ATNC, PERRL Neck: no JVD, no thyromegaly Respiratory: Present: Clear to Ascultation Cardiology: regular, normal heart rate Gastrointestinal: normal Integumentary: no rash, warm and dry Neurologic: no focal deficit, alert and oriented x3 Musculoskeletal: deferred Psychiatric: mood/affect appropriate, cooperative - Lab 05/16/19 14:42 05/16/19 14:42 Most recent lab results Calcium 8.7 mg/dL (8.4-10.2) 05/16/19 14:42 - Imaging Chest x-ray: report reviewed - Allied health notes Allied health notes reviewed: nursing Medications & Allergies - Medications Allergies/Adverse Reactions: Allergies iron dextran complex [From Infed] Allergy (Severe, Verified 05/15/19 10:53) CAUSE PT TO HAVE A STROKE Home Medications: Home Medications Medication Instructions Recorded Confirmed Last Taken Type Apixaban [Eliquis] 5 mg PO DAILY 05/14/19 05/14/19 05/13/19 10:00 History Aspirin [Aspirin BABY CHEW TAB] 81 mg PO DAILY 05/14/19 05/14/19 05/13/19 10:00 History Ferric Citrate (Nf) [Auryxia] 210 mg PO TID 05/14/19 05/14/19 05/14/19 10:00 History HYDROcodone/APAP 5-325 [[place] 1 tab PO Q6H PRN 05/14/19 05/14/19 Unknown History 5-325 mg TAB] Lisinopril [Zestril TAB] 5 mg PO QDAY 05/14/19 05/14/19 05/14/19 10:00 History Megestrol [Megace] 40 mg PO BID 05/14/19 05/14/19 05/14/19 10:00 History Ticagrelor [Brilinta] 90 mg PO BID 05/14/19 05/14/19 05/14/19 10:00 History carvediloL [Coreg] 6.25 mg PO BID 05/14/19 05/14/19 05/14/19 10:00 History Active Medications: Generic Name Dose Route Start Last Admin Trade Name Freq PRN Reason Stop Dose Admin Acetaminophen/Hydrocodone Bitart 1 each 05/15/19 14:02 05/16/19 21:51 [place] 5/325 PO 1 each Q6H PRN Administration Pain, Moderate (4-6) Albumin Human 25 gm 12/12/19 13:15 Alburx 25% (Albumin) IV EBEN PRN Hypotension Albuterol 2.5 mg 05/16/19 12:39 Proventil IH Q4HRT PRN Shortness Of Breath Apixaban 5 mg 05/16/19 10:00 05/18/19 12:05 Eliquis PO 5 mg DAILY MACARENA Administration Protocol Aspirin 81 mg 05/16/19 10:00 05/18/19 12:05 Baby Aspirin PO 81 mg DAILY MACARENA Administration Carvedilol 6.25 mg 05/15/19 22:00 05/18/19 12:04 Coreg PO Not Given BID MACARENA Dextrose 50 ml 05/16/19 15:12 05/16/19 15:29 D50w (25gm) Syringe IV 50 ml Q30MIN PRN Administration Hypoglycemia Protocol Docusate Sodium 100 mg 05/15/19 22:00 05/18/19 12:05 Colace PO 100 mg BID MACARENA Administration Famotidine 20 mg 05/16/19 13:00 05/18/19 12:03 Pepcid PO 20 mg DAILY MACARENA Administration Dopamine HCl/Dextrose 800 mg in 250 mls @ 2.211 mls/hr 05/15/19 15:00 05/16/19 10:00 Intropin Drip 800 Mg/D5w 250 Ml IV 0 mcg/kg/min TITR MACARENA 0 mls/hr Titration Protocol 2 MCG/KG/MIN Sodium Nitroprusside 50 mg/ 250 mls @ 4.423 mls/hr 05/15/19 15:00 Dextrose IV TITR MACARENA Protocol 0.25 MCG/KG/MIN Sodium Chloride 100 mls @ 999 mls/hr 05/16/19 13:15 Nacl 0.9% IV EBEN PRN Hypotension Dextrose 1,000 mls @ 75 mls/hr 05/16/19 16:00 05/18/19 06:29 D10w IV 75 mls/hr DIRECT MACARENA Administration Lisinopril 5 mg 05/16/19 10:00 05/18/19 11:59 Zestril PO Not Given QDAY MACARENA Megestrol Acetate 40 mg 05/15/19 22:00 05/18/19 12:06 Megestrol PO 40 mg BID MACARENA Administration Miscellaneous Medication 210 mg 05/15/19 20:00 Ferric Citrate (Nf) PO TID MACARENA Morphine Sulfate 2 mg 05/16/19 11:49 05/17/19 20:32 Morphine IV 2 mg Q4H PRN Administration Pain, Moderate (4-6) Ticagrelor 90 mg 05/15/19 22:00 05/18/19 12:06 Brilinta PO 90 mg BID MACARENA Administration
[2019-05-18] MEDS: MORPHINE 2 MG/1 ML INJ IV PRN (12:49)
[2019-05-18] MEDS ORDERED: SODIUM CHLORIDE*PRIMING MACHINE ONLY FOR DIALYSIS MC ONE (13:25)
--- NOTE | 2019-05-18 14:42 | Discharge Summary ---
Providers - Providers Date of Admission: 05/15/19 07:38 Date of discharge: 05/18/19 Attending physician: CHRIST WHITTINGTON 05/15/19 14:02 Consult to Physician [CONS] Routine Comment: Consulting Provider: BRE GOMEZ Physician Instructions: Reason For Exam: Critical care management 05/15/19 14:56 Consult to Physician [CONS] Routine Comment: Consulting Provider: VERONA COLINDRES Physician Instructions: Reason For Exam: Dialysis [id number] 05/16/19 07:08 PICC Line Placement [Consult to PICC Line RN] [CONS] Routine Reason For Exam: on pressors Type Line:: PICC 05/16/19 10:49 Physical Therapy Evaluation and Treat [CONS] Routine Comment: Reason For Exam: status post right carotid endarterectomy Primary care physician: SHANTEL GARAY Hospitalization Reason for admission: Carotid stenosis, rest pain Condition: Stable Pertinent studies: CTA of the lower extremities Severe bilateral peripheral vascular disease 2.1 cm right sided renal mass, likely neoplastic. Procedures: Date of procedure: 05/15/2019 Pre-operative diagnosis: Right Carotid Artery Stenosis Post-operative diagnosis: Right Carotid Artery Stenosis Procedure(s): 1. Right Carotid Endarterectomy With Patch Angioplasty 2. Intraoperative Completion Duplex Surgeon: Christ Whittington MD Catheter Builder: None Anesthesia: General Endotracheal Anesthesia EBL: 100 mL Findings: Significant internal right carotid artery stenosis. Specimen: Right Carotid Plaque Counts: Correct Complications: None Condition: Stable Indication: The patient is a 73-year-old male with a history of peripheral vascular disease with bilateral lower extremity rest pain who had a carotid duplex demonstrating approximately 90% stenosis of his right internal carotid. He is asymptomatic however he is in need of a right carotid endarterectomy prior to having intervention of his bilateral lower extremity peripheral vascular disease. He was worked up and found to be a suitable candidate for open carotid endarterectomy. He was given the risks, benefits, and alternative procedures and consented to procedure. Description of Procedure: The patient was brought to the operating room and laid in supine position. After general endotracheal anesthesia was achieved the patient was placed in beachchair position with her head elevated and turned slightly to the left. The patient's neck and chest were prepped and draped in normal fashion. An oblique incision was then created along the anterior border of the sternocleidomastoid. The incision was then carried down to the facial vein using sharp dissection. The facial vein was then dissected out circumferentially, suture ligated and di vided. The dissection was then carried down to the common carotid using sharp dissection. The common carotid artery was dissected out circumferentially taking care to avoid the vagus nerve which was identified and avoided. The artery was then controlled with a large vessel loop. The dissection was carried up along the external carotid and the superficial thyroid artery was identified dissected out circumferentially and controlled with a 2-0 silk. The external carotid was dissected out and controlled a small vessel loop. I then dissected out the internal carotid artery well above the plaque which was identified by a change in hue of the artery from yellow to blue and palpation of the artery over a right angle. The hypoglossal nerve was identified and avoided. I controlled the internal carotid artery with a small vessel and at this point the patient was systemically heparinized with heparin IV. Once the heparin had circulated for 3 minute I clamped the internal carotid artery followed by the common carotid and then the external Carotid artery. I created an arteriotomy extending from the common carotid into the internal carotid, well above the plaque, using an 11 blade and Ortiz scissors. I then flashed the internal carotid artery to check for adequate backbleeding. The backbleeding from the internal carotid was sluggish therefore the patient will course shunting. I advanced a argyle shunt into the common carotid and then removed the clamp from the internal carotid and advanced the distal end of the shunt into the internal carotid. The shunt was secured in the internal carotid using a Gt clamp. u I then used a Cygnet blade to dissect the plaque away from the artery. I used a right angle to continue the dissection of this plane from lateral to medial and then divided the plaque using Ortiz scissors. I then trimmed the plaque proximally using Ortiz and then teased the plaque away from the distal endpoint insuring that there were no areas of dissection or intimal flaps. These plaque forceps to remove all loose debris and then flushed the artery with heparinized saline. I then closed the artery using the Dacron patch and two 6-0 Prolenes in running fashion. Prior to completing the closure I removed the argyle shunt and flushed all arteries to remove all loose debris and then flushed the artery with heparinized saline. I then completed the closure adn flashed the internal carotid,and reclamped and then removed the clamp from the common carotid followed by the external carotid and allowed any loose debris to flush into the external carotid. I then removed the clamp from the internal carotid artery. Hemostasis was achieved with repair sutures with 6-0 Prolene in interrupted fashion and a combination of direct pressure with Quick Clot. Once hemostasis was achieved I performed an intraoperative duplex that demonstrated no evidence of dissection and normalization of internal carotid velocity. I then anesthetized the wound with 0.5% Marcaine and closed in 2 layers using a 3-0 Vicryl in running in the deep dermal layer and a 4-0 Monocryl in running in the subcuticular layer and dressed it with the Dermabond. The patient tolerated the procedure well all sponge needle and instrument counts were correct the patient was taken to the recovery area in stable condition. Hospital course: 73-year-old male with multiple medical issues including end-stage renal disease who presented to the hospital with severe carotid artery stenosis status post right-sided carotid endarterectomy which was not complicated who had to be initiated on pressors due to post endarterectomy hypotension which has since been discontinued. Patient has chronic rest pain of the lower extremities. CTA was ordered, but patient was unable to have this performed until a PICC line was placed under fluoroscopic guidance. CT angiogram demonstrated severe peripheral vascular disease of the bilateral lower extremities and a 2.1 cm right-sided renal mass likely renal cell carcinoma. Findings discussed with the patient. Patient complained of sore throat from ET tube which has been slowly improving. Patient is able to eat and drink without issue. Patient will follow up with Dr. Whittington in 2 weeks. Continue outpatient cardiac regimen (triple therapy). Disposition: DC-30 STILL A PATIENT - Discharge Diagnoses (1) Carotid artery stenosis Status: Acute Qualifiers: Laterality: right Qualified Code(s): I65.21 - Occlusion and stenosis of right carotid artery (2) Anemia in CKD (chronic kidney disease) Status: Chronic Qualifiers: Chronic kidney disease stage: on chronic dialysis Qualified Code(s): N18.6 - End stage renal disease; D63.1 - Anemia in chronic kidney disease; Z99.2 - Dependence on renal dialysis (3) End stage renal disease Status: Chronic (4) Hypertensive chronic kidney disease with stage 5 chronic kidney disease or end stage renal disease Status: Chronic Core Measure Documentation - Palliative Care Palliative Care/ Comfort Measures: Not Applicable - Core Measures Any of the following diagnoses?: history only - VTE Discharge Requirements Deep Vein Thrombosis/Pulmonary Embolism Present on Admission: No Exam - Constitutional Vitals: Temp Pulse Resp BP Pulse Ox 98.5 F 82 20 107/47 97 05/18/19 07:52 05/18/19 04:00 05/18/19 04:00 05/18/19 04:00 05/18/19 04:00 General appearance: Present: no acute distress - EENT Eyes: Present: EOM intact - Neck Neck: Present: supple - Respiratory Respiratory effort: normal - Extremities Extremities: abnormal (no acute ischemia, nonpalpable pedal pulses, complains of heel pain) - Abdominal General gastrointestinal: Present: soft - Psychiatric Psychiatric: appropriate mood/affect, cooperative Plan Activity: advance as tolerated, other (do not lift more than 10 lbs for 2 weeks) Weight Bearing Status: Weight Bear as Tolerated (do not life more than 10 lbs for 2 weeks) Diet: renal (eat soft foods until sore throat resolves) Wound: keep clean and dry, other (can get wet from shower, DO NOT SOAK WOUND, DO NOT TAKE BATH AND SOAK WOUND, do not lift more than 10 lbs for 2 weeks) Follow up with: CHRIST WHITTINGTON MD [Staff Physician] - 14 Days SHANTEL GARAY MD [Primary Care Provider] - 6 Weeks RUFINA HUNT MD [Staff Physician] - 14 Days
[2019-05-18 17:54] VITALS: BP 114/38
== END 2019-05-18 19:50 | disposition home or self-care (01) | DRG 37 ==
LOC: 3A 07:38 → EDSTATUS 09:30 → CC1 14:47 → IMCU 05-16 16:21
PROVIDERS: ADMIT Surgery Vascular Surgery; ATTEND Surgery Vascular Surgery
PROC: 03CK0ZZ Extirpation of Matter from Right Internal Carotid Artery, Open Approach (ICD-10-PCS; principal; 2019-05-15)
PROC: 03UK0JZ Supplement Right Internal Carotid Artery with Synthetic Substitute, Open Approach (ICD-10-PCS; 2019-05-15)
PROC: B54NZZA Ultrasonography of Left Upper Extremity Veins, Guidance (ICD-10-PCS; 2019-05-17)
PROC: B51N1ZZ Fluoroscopy of Left Upper Extremity Veins using Low Osmolar Contrast (ICD-10-PCS; 2019-05-17)
PROC: 02HV33Z Insertion of Infusion Device into Superior Vena Cava, Percutaneous Approach (ICD-10-PCS; 2019-05-17)
PROC: 5A1D70Z Performance of Urinary Filtration, Intermittent, Less than 6 Hours Per Day (ICD-10-PCS; 2019-05-17)
PROC: 5A1D70Z Performance of Urinary Filtration, Intermittent, Less than 6 Hours Per Day (ICD-10-PCS; 2019-05-18)
DX: I65.21 Occlusion and stenosis of right carotid artery (principal); J96.01 Acute respiratory failure with hypoxia; N18.6 End stage renal disease; I13.2 Hypertensive heart and chronic kidney disease with heart failure and with stage 5 chronic kidney disease, or end stage renal disease; I50.9 Heart failure, unspecified; I25.10 Atherosclerotic heart disease of native coronary artery without angina pectoris; D50.9 Iron deficiency anemia, unspecified; E11.51 Type 2 diabetes mellitus with diabetic peripheral angiopathy without gangrene; D63.1 Anemia in chronic kidney disease; E11.22 Type 2 diabetes mellitus with diabetic chronic kidney disease; Z87.891 Personal history of nicotine dependence; Z86.73 Personal history of transient ischemic attack (TIA), and cerebral infarction without residual deficits; Z79.899 Other long term (current) drug therapy; Z79.82 Long term (current) use of aspirin; Z82.49 Family history of ischemic heart disease and other diseases of the circulatory system; Z99.2 Dependence on renal dialysis
CPT/HCPCS: 36415; 36573; 75635; 80048; 80074; 82947; 82962; 85025; 88304; 88311; 94640; 94760; G0378; A4649; C1751; C1768; C1894; J0690; J1170; J1265; J1644; J2250; J2270; J2370; J2440; J2704; J2710; J2720; J3010; J3490; J7030; J7040; J7050; Q9967